=== PATIENT | female | born 1995 | race Two or more races ===

== ENCOUNTER 2023-09-26 06:11 | Day surgery (SDC) | payer BC, SELFPAY ==
[2023-09-26] VITALS (17 sets, daily range): BP systolic 79–114; BP diastolic 40–72; BMI 34.9
[2023-09-26] MEDS: NORMOSOL-R 1000 IV (06:26)
[2023-09-26] MEDS: TYLENOL 1000 MG PO (07:41)
== END 2023-09-26 12:10 | disposition home or self-care (01) ==
LOC: SDS 06:11
PROVIDERS: ATTENDING PHYSICIAN Otolaryngology
DX: J35.01 Chronic tonsillitis (principal)
CPT/HCPCS: 42826; 88304

== ENCOUNTER 2023-10-08 00:54 | Emergency (ER) | payer BC, SELFPAY ==
[2023-10-08 00:57] VITALS: BP 122/68
--- NOTE | 2023-10-08 02:21 | ED.GENMED ---
History of Present Illness
General
Chief Complaint: Throat Problem
Source: patient and family
Exam Limitations: none
Time Seen by Provider: 10/08/23 01:08
Nursing documentation reviewed up to this point in time: agreed with
History of Present Illness
History of Present Illness:
Pleasant 27-year-old female who presents with intermittent bleeding. She had a tonsillectomy 12 days ago. She did have bleeding throughout but it had stopped early in the recovery. For the past few hours she has had intermittent bleeding. She
called Dr. Amaya's office who advised her to come into the emergency department. Upon arrival bleeding had stopped. She has no complaints at this time. She is convalescing at her mom's house. Her mom has cats and patient is allergic to cats. She
has been sneezing and coughing more frequently than normal.
Review of Systems
Review of Systems
Allergies reviewed?: Yes
All Other Systems: ROS reviewed and negative except as documented in HPI and ROS
Constitutional: Reports no symptoms
EENT: Reports other (Mouth bleeding)
Respiratory: Reports no symptoms
Cardiac: Reports no symptoms
ABD/GI: Reports no symptoms
: Reports no symptoms
Musculoskeletal: Reports no symptoms
Skin: Reports no symptoms
Neurological: Reports no symptoms
Endocrine: Reports no symptoms
Hematologic/Lymphatic: Reports no symptoms
Psychiatric: Reports no symptoms
Phy Exam
General Physical Exam
General Presentation: well appearing and no apparent distress
General Skin: warm
General Habitus: normal
ENT Exam
Additional ENT: Left tonsillar pillar has a small area of scab/clot.
Pulmonary Exam
Pulmonary Exam: lungs clear and no respiratory distress
Musculoskeletal Exam
Musculoskeletal Exam: full ROM
Skin Exam
Skin Exam: normal color and warm/dry
Psychiatric Exam
Psychiatric Exam: normal mood/affect
Course
Vital Signs
Initial and Last Documented VS:
Initial Vital Signs
Pulse Resp BP Pulse Ox
68 18 122/68 100
10/08/23 00:57 10/08/23 00:57 10/08/23 00:57 10/08/23 00:57
Last Documented Vital Signs
Pulse Resp BP Pulse Ox
68 18 122/68 100
10/08/23 00:57 10/08/23 00:57 10/08/23 00:57 10/08/23 00:57
*Critical Care Note
Total Time (30-74mins, 75-104mins- exclusive of procedures): Not Applicable
ED Attending Note
-
Portions of this chart may have been created with voice recognition software.� Occasional wrong word or��sound alike� substitutions may have occurred due to the inherent limitations of voice recognition software.
Discharge Plan
Departure
Patient Disposition: Home (Routine Discharge)
Date of Disposition: 10/08/23
Time of Disposition: :22
Patient with high blood pressure during this ER visit?: Yes
Condition: Good
Discharge Problem:
Post-op bleeding
Instructions: Bleeding After Surgery, BLOOD PRESSURE
Prescriptions:
No Action
fluoxetine [Prozac] 40 mg Capsule
60 mg PO HS
albuterol sulfate [ProAir HFA] 90 mcg/actuation Hfa Aerosol Inhaler
2 puff INHALATION Q6H PRN (Reason: mild asthma)
Vitamin D3
1 tab PO DAILY
magnesium
1 tab PO DAILY
Referrals:
Александр Bonilla MD [Family Provider] -
Roman Miguel MD [Active] - Keep scheduled appt
Activity Restrictions/Additional Instructions:
It was a pleasure meeting you and taking part in your care. We hope for your continued healing and wellness.
Please read discharge instructions in their entirety. However, they are for general education and may not describe your exact diagnosis at discharge. Information on your ER visit and medical conditions were discussed with you along with appropriate
follow up information...
If indicated, please take your medications as instructed and indicated on discharge paperwork.
Please schedule a follow up appointment as directed. Call to schedule an appointment
Please return to the emergency department with ANY change in, persisting, or worsening of symptoms. If any of your symptoms do not improve, or persist, or become more severe within 6-12 hours, please return to the emergency department for further
care.
Please return to the emergency department if you develop a headache, neck pain/stiffness, fever greater than 100.4F, chest pain, shortness of breath, persistent nausea, vomiting, slurred speech, difficulty walking, numbness/tingling, weakness, signs
of infection or any other symptoms that are worrisome to you.
If you have any questions or concerns please do not hesitate to call the Hospital at or E-mail me directly at [email or web address]
Discharge Date and Time
Print Language: WELSH
== END 2023-10-08 02:57 | disposition home or self-care (01) ==
LOC: EMR 00:54
PROVIDERS: EMERGENCY PHYSICIAN Student in an Organized Health Care Education/Training Program; FAMILY PHYSICIAN Family Medicine
DX: L76.22 Postprocedural hemorrhage of skin and subcutaneous tissue following other procedure (principal)
CPT/HCPCS: 99282